=== PATIENT | female | born 1960 | race Caucasian/White ===

== ENCOUNTER 2017-12-23 16:05 | Emergency (ER) | payer OTHER ==
[~2017-12-23] VITALS: Ht 157.5 cm; Wt 64.4 kg
[2017-12-23 16:13] VITALS: Ht 157.5 cm; Wt 64.4 kg
[2017-12-23 17:49] VITALS: BP 130/70
== END 2017-12-23 17:49 | disposition home or self-care (01) ==
LOC: ED 16:05
DX: S93.401A Sprain of unspecified ligament of right ankle, initial encounter (principal); X58.XXXA Exposure to other specified factors, initial encounter; Y93.89 Activity, other specified; Y92.89 Other specified places as the place of occurrence of the external cause; Y99.8 Other external cause status